=== PATIENT | male | born 1985 | race African-American/Black ===

== ENCOUNTER 2017-11-01 13:21 | Emergency (ER) | payer SELFPAY ==
[2017-11-01] MEDS ORDERED: Lidocaine 1% PF 5 ML VIAL ONE (13:59)
[2017-11-01] MEDS ORDERED: cefTRIAXone\\ROCEPHIN 250 MG VIAL ONE (13:59)
[2017-11-01] MEDS ORDERED: Azithromycin 250 MG TAB ONE (14:12)
[2017-11-04 01:02] LABS: Chlamydia by PCR Not Detected (NotDetected); GC by PCR Not Detected (NotDetected)
== END 2017-11-01 14:35 | disposition home or self-care (01) ==
LOC: ERS 13:21
DX: N34.2 Other urethritis (principal); J45.909 Unspecified asthma, uncomplicated
CPT/HCPCS: 87491; 87591; 96372; J0696; J2001

== ENCOUNTER 2018-01-23 14:51 | Emergency (ER) | payer SELFPAY | END 2018-01-23 15:28 | disposition home or self-care (01) | LOC: ERS 14:51 | DX: A64 Unspecified sexually transmitted disease (principal); J45.909 Unspecified asthma, uncomplicated | CPT/HCPCS: 99281 ==

== ENCOUNTER 2018-06-03 01:37 | Emergency (ER) | payer SELFPAY | END 2018-06-03 02:00 | disposition home or self-care (01) | LOC: SCSER 01:37 | DX: T78.40XA Allergy, unspecified, initial encounter (principal); J45.909 Unspecified asthma, uncomplicated | CPT/HCPCS: 99283 ==

== ENCOUNTER 2018-10-13 03:38 | Emergency (ER) | payer SELFPAY ==
--- NOTE | 2018-10-13 08:32 | RAD ---
3 VIEWS: RIGHT SHOULDER: Date: 10/13/18 COMPARISON: None. HISTORY: Fall yesterday with right shoulder pain. FINDINGS: Three views of the right shoulder show no evidence of acute fracture or dislocation. No soft tissue s welling is seen. No degenerative changes are present. IMPRESSION: No evidence of acute osseous abnormality. POS: [facility]
== END 2018-10-13 04:21 | disposition home or self-care (01) ==
LOC: SCSER 03:38
DX: S43.401A Unspecified sprain of right shoulder joint, initial encounter (principal); J45.909 Unspecified asthma, uncomplicated; W18.30XA Fall on same level, unspecified, initial encounter

== ENCOUNTER 2020-01-11 05:21 | Emergency (ER) | payer SELFPAY ==
[2020-01-11] MEDS ORDERED: cefTRIAXone\\ROCEPHIN 250 MG VIAL ONE (05:37)
[2020-01-11] MEDS ORDERED: Lidocaine 1% PF 5 ML VIAL ONE (05:37)
[2020-01-11] MEDS ORDERED: Azithromycin 250 MG TAB ONE (05:38)
[2020-01-11 06:55] LABS: Bacteria/HPF None Seen HPF (None Seen); Bilirubin Negative (Negative); Blood, Urine Negative (Negative); Clarity Clear (Clear); Glucose, Urine (Dipstick) Normal (Negative); Leukocyte 25 Leu/uL (Negative); Nitrite Negative (Negative); Protein, Urine (Dipstick) 10 mg/dL (Neg-Trace); RBC/HPF 0-3 HPF (0-3); Squamous Epithelial None Seen HPF (0-3); Urobilinogen Normal mg/dL (Less than 2)
[2020-01-12 18:38] LABS: Chlam.trachomatis by PCR,Urine Not Detected (NotDetected)
== END 2020-01-11 06:28 | disposition home or self-care (01) ==
LOC: ERS 05:21
DX: R30.0 Dysuria (principal); Z20.2 Contact with and (suspected) exposure to infections with a predominantly sexual mode of transmission; J45.909 Unspecified asthma, uncomplicated
CPT/HCPCS: 81003; 81015; 87491; 87591; 96372; 99283; J0696; J2001

== ENCOUNTER 2020-07-05 18:42 | Emergency (ER) | payer SELFPAY ==
[2020-07-05] MEDS ORDERED: Azithromycin 250 MG TAB ONE (20:02)
[2020-07-05] MEDS ORDERED: cefTRIAXone\\ROCEPHIN 250 MG VIAL ONE (20:02)
[2020-07-05] MEDS ORDERED: Lidocaine 1% (PF) 30 ML VIAL ONE (20:04)
[2020-07-05 20:06] LABS: Bilirubin Negative (Negative); Blood, Urine Negative (Negative); Clarity Clear (Clear); Glucose, Urine (Dipstick) Normal (Negative); Ketone, Urine Negative (Negative); Leukocyte Negative Leu/uL (Negative); Nitrite Negative (Negative); Protein, Urine (Dipstick) 20 mg/dL (Neg-Trace); Urobilinogen Normal mg/dL (Less than 2)
[2020-07-07 23:27] LABS: Chlam.trachomatis by PCR,Urine Not Detected (NotDetected)
== END 2020-07-05 20:26 | disposition home or self-care (01) ==
LOC: ERS 18:42
DX: N34.2 Other urethritis (principal); J45.909 Unspecified asthma, uncomplicated
CPT/HCPCS: 81003; 87491; 87591; 96372; 99283; J0696; J2001

== ENCOUNTER 2020-07-07 02:26 | Emergency (ER) | payer SELFPAY | END 2020-07-07 02:56 | disposition home or self-care (01) | LOC: ERS 02:26 | DX: L73.1 Pseudofolliculitis barbae (principal); L73.9 Follicular disorder, unspecified; J45.909 Unspecified asthma, uncomplicated | CPT/HCPCS: 99282 ==

== ENCOUNTER 2021-01-15 05:35 | Emergency (ER) | payer SELFPAY | END 2021-01-15 06:53 | disposition home or self-care (01) | LOC: ERS 05:35 | DX: S62.336A Displaced fracture of neck of fifth metacarpal bone, right hand, initial encounter for closed fracture (principal); J45.909 Unspecified asthma, uncomplicated; W21.05XA Struck by basketball, initial encounter | CPT/HCPCS: 29125 ==

== ENCOUNTER 2021-05-10 01:32 | Emergency (ER) | payer SELFPAY ==
[2021-05-10 02:11] LABS: Bilirubin Negative (Negative); Blood, Urine Negative (Negative); Clarity Clear (Clear); Glucose, Urine (Dipstick) Normal (Negative); Ketone, Urine Negative (Negative); Leukocyte Negative Leu/uL (Negative); Nitrite Negative (Negative); Protein, Urine (Dipstick) 20 mg/dL (Neg-Trace); Specific Gravity, Urine 1.036 (1.002-1.036); Urobilinogen Normal mg/dL (Less than 2)
[2021-05-10] MEDS ORDERED: Lidocaine 1% PF 5 ML VIAL ONE (05:24)
[2021-05-10] MEDS ORDERED: cefTRIAXone\\ROCEPHIN 500 MG VIAL ONE (05:24)
[2021-05-11 21:48] LABS: Chlam.trachomatis by PCR,Urine Not Detected (NotDetected)
== END 2021-05-10 05:35 | disposition home or self-care (01) ==
LOC: ERS 01:32
DX: Z20.2 Contact with and (suspected) exposure to infections with a predominantly sexual mode of transmission (principal)
CPT/HCPCS: 81003; 87086; 87491; 87591; 96372; 99283; J0696

== ENCOUNTER 2022-02-03 18:44 | Emergency (ER) | payer SELFPAY ==
[2022-02-03] MEDS ORDERED: Azithromycin 250 MG TAB ONE ×2 (19:12→19:14)
[2022-02-03] MEDS ORDERED: cefTRIAXone\\ROCEPHIN 500 MG VIAL ONE (19:12)
[2022-02-03] MEDS ORDERED: Lidocaine 1% PF 5 ML VIAL ONE (19:12)
== END 2022-02-03 19:34 | disposition home or self-care (01) ==
LOC: ERS 18:44
DX: A74.9 Chlamydial infection, unspecified (principal)
CPT/HCPCS: 96372; 99283; J0696

== ENCOUNTER 2022-03-01 16:21 | Emergency (ER) | payer SELFPAY ==
[2022-03-01] MEDS ORDERED: Dexameth. Sod Phosp. 10 MG/ML (CHEMO USE ONLY) ONE (19:34)
[2022-03-01] MEDS ORDERED: Ketorolac Tromethamine 30 MG/ML VIAL ONE (19:34)
[2022-03-01] MEDS ORDERED: Diazepam 5 MG TAB ONE (19:35)
== END 2022-03-01 19:55 | disposition home or self-care (01) ==
LOC: ERS 16:21
DX: M54.2 Cervicalgia (principal)
CPT/HCPCS: 96372; 99283; J1100; J1885

== ENCOUNTER 2022-08-08 21:42 | Emergency (ER) | payer SELFPAY | END 2022-08-08 23:50 | disposition home or self-care (01) | LOC: ERS 21:42 | DX: U07.1 COVID-19 (principal); J45.909 Unspecified asthma, uncomplicated; Z79.899 Other long term (current) drug therapy | CPT/HCPCS: 71045; U0003; U0005 ==

== ENCOUNTER 2022-09-23 08:10 | Emergency (ER) | payer SELFPAY ==
[2022-09-23] MEDS ORDERED: Ibuprofen 200 MG TAB ONE (09:46)
== END 2022-09-23 10:01 | disposition home or self-care (01) ==
LOC: ERS 08:10
DX: J02.9 Acute pharyngitis, unspecified (principal); B34.9 Viral infection, unspecified
CPT/HCPCS: 87081; 87430; 99283

== ENCOUNTER 2022-11-23 22:25 | Emergency (ER) | payer SELFPAY ==
[2022-11-23 22:53] LABS: Bilirubin Negative (Negative); Blood, Urine Negative (Negative); Clarity Clear (Clear); Glucose, Urine (Dipstick) Normal (Negative); Ketone, Urine Negative (Negative); Leukocyte Negative Leu/uL (Negative); Nitrite Negative (Negative); Protein, Urine (Dipstick) Negative (Neg-Trace); Specific Gravity, Urine 1.029 (1.002-1.036); Urobilinogen Normal mg/dL (Less than 2)
[2022-11-23] MEDS ORDERED: cefTRIAXone (ROCEPHIN) 500 MG VIAL ONE (23:47)
[2022-11-23] MEDS ORDERED: Lidocaine 1% MPF 2 ML VIAL ONE (23:48)
[2022-11-24 15:06] LABS: Chlam.trachomatis by PCR,Urine Not Detected (NotDetected); GC N.gonorrhoeae PCR,UrineVOID Not Detected (NotDetected)
== END 2022-11-24 00:11 | disposition home or self-care (01) ==
LOC: ERS 22:25
DX: N34.2 Other urethritis (principal)
CPT/HCPCS: 81003; 87491; 87591; 96372; 99283; J0696

== ENCOUNTER 2022-11-26 02:56 | Emergency (ER) | payer SELFPAY ==
[2022-11-26 04:10] LABS: Bilirubin Negative (Negative); Blood, Urine Negative (Negative); Clarity Clear (Clear); Glucose, Urine (Dipstick) Normal (Negative); Ketone, Urine Negative (Negative); Leukocyte Negative Leu/uL (Negative); Nitrite Negative (Negative); Protein, Urine (Dipstick) Negative (Neg-Trace); Specific Gravity, Urine 1.025 (1.002-1.036); Urobilinogen Normal mg/dL (Less than 2); pH, Urine 6.5 (5.0-9.0)
[2022-11-26] MEDS ORDERED: Ibuprofen 200 MG TAB ONE (04:24)
== END 2022-11-26 04:34 | disposition home or self-care (01) ==
LOC: ERS 02:56
DX: N34.2 Other urethritis (principal)
CPT/HCPCS: 81003; 99283

== ENCOUNTER 2023-05-07 04:04 | Emergency (ER) | payer SELFPAY ==
[2023-05-07] MEDS ORDERED: Ketorolac Tromethamine 30 MG/ML VIAL ONE (04:32)
== END 2023-05-07 05:07 | disposition home or self-care (01) ==
LOC: ERS 04:04
DX: S62.306A Unspecified fracture of fifth metacarpal bone, right hand, initial encounter for closed fracture (principal); W22.8XXA Striking against or struck by other objects, initial encounter
CPT/HCPCS: J1885

== ENCOUNTER 2023-06-28 08:48 | Emergency (ER) | payer SELFPAY | END 2023-06-28 09:57 | disposition home or self-care (01) | LOC: ERS 08:48 | DX: H60.12 Cellulitis of left external ear (principal) | CPT/HCPCS: 99282 ==

== ENCOUNTER 2023-07-07 09:22 | Emergency (ER) | payer SELFPAY ==
[2023-07-07] MEDS ORDERED: cefTRIAXone (ROCEPHIN) 500 MG VIAL ONE (11:31)
[2023-07-07] MEDS ORDERED: Lidocaine 1% MPF 2 ML VIAL ONE (11:33)
[2023-07-07 16:22] LABS: Chlam.trachomatis by PCR,Urine Not Detected (NotDetected); GC N.gonorrhoeae PCR,UrineVOID Not Detected (NotDetected)
== END 2023-07-07 12:16 | disposition home or self-care (01) ==
LOC: ERS 09:22
DX: R30.0 Dysuria (principal); Z20.2 Contact with and (suspected) exposure to infections with a predominantly sexual mode of transmission
CPT/HCPCS: 87491; 87591; 96372; 99283; J0696

== ENCOUNTER 2024-08-28 01:50 | Emergency (ER) | payer SELFPAY ==
[2024-08-28 02:14] LABS: Bacteria/HPF None Seen HPF (None Seen); Bilirubin Negative (Negative); Blood, Urine Negative (Negative); CAUTI Indications for Culture Dysuria,urgency,freq; Clarity Clear (Clear); Glucose, Urine (Dipstick) 30 mg/dL (Negative); Ketone, Urine Negative (Negative); Leukocyte Negative Leu/uL (Negative); Nitrite Negative (Negative); Protein, Urine (Dipstick) Negative (Neg-Trace); RBC/HPF 0-3 HPF (0-3); Specific Gravity, Urine 1.026 (1.002-1.036); Squamous Epithelial 0-3 HPF (0-3); Urobilinogen Normal mg/dL (Less than 2)
[2024-08-28 02:15] LABS: Urine Culture Reflex No No
[2024-08-28] MEDS ORDERED: cefTRIAXone (ROCEPHIN) 500 MG VIAL ONE (03:32)
[2024-08-28] MEDS ORDERED: Lidocaine 1% PF 5 ML VIAL ONE (03:32)
[2024-08-28 09:43] LABS: Chlam.trachomatis by PCR,Urine Not Detected (NotDetected); GC N.gonorrhoeae PCR,UrineVOID Not Detected (NotDetected)
== END 2024-08-28 03:43 | disposition home or self-care (01) ==
LOC: ERS 01:50
DX: N34.2 Other urethritis (principal); R03.0 Elevated blood-pressure reading, without diagnosis of hypertension; Z20.2 Contact with and (suspected) exposure to infections with a predominantly sexual mode of transmission
CPT/HCPCS: 81001; 87086; 87491; 87591; 96372; 99283; J0696